=== PATIENT | male | born 1980 | race Caucasian/White ===

== ENCOUNTER 2023-02-08 13:37 | Outpatient (REF) | payer OTHER, SELFPAY ==
--- NOTE | ~2023-02-08 | US_ITS ---
EXAMINATION: US EXTRACRANIAL CAROTID DUPLEX, BILATERAL CLINICAL INFORMATION: Syncope and collapse. COMPARISON: None available. TECHNIQUE: Real-time ultrasound and Doppler techniques (integrating B-mode 2-D vascular images, Doppler spectral analysis and color-flow Doppler imaging) were utilized to interrogate the extracranial carotid arteries, the vertebral arteries and proximal subclavian arteries bilaterally. The degree of stenosis is determined by criteria similar to NASCET. FINDINGS: Right Side: 1. There is no atherosclerotic plaque seen in the bifurcation/proximal ICA region. 2. The common carotid artery PSV proximally is 127 cm/s and distally 98 cm/s. 3. The proximal internal carotid artery velocities are 76 cm/s systolic and 29 cm/s diastolic. 4. The proximal external carotid artery PSV is 136 cm/s. 5. The vertebral artery shows antegrade flow. 6. The subclavian artery waveforms are normal. Left Side: 1. There is no atherosclerotic plaque seen in the bifurcation/proximal ICA region. 2. The common carotid artery PSV proximally is 127 cm/s and distally 83 cm/s. 3. The proximal internal carotid artery velocities are 60 cm/s systolic and 30 cm/s diastolic. 4. The proximal external carotid artery PSV is 93 cm/s. 5. The vertebral artery shows antegrade flow. 6. The subclavian artery waveforms are normal. US/US carotid duplex BI IMPRESSION: 1. RIGHT: Normal right internal carotid artery without atherosclerotic plaque or hemodynamically significant stenosis. 2. LEFT: Normal left internal carotid artery without atherosclerotic plaque or hemodynamically significant stenosis.
--- NOTE | 2023-02-08 14:13 | CA_ITS ---
Transthoracic Echocardiogram Patient (Last, First, Middle): Gerard Reynaga A Gender: Male Date of : 1980 Age: 42 Procedure Date: 02/08/2023 Procedure Type: Transthoracic Echocardiogram Location: OP Height: 182.88 cm Weight: 106.6 kg BSA: 2.28 m2 Heart Rate: bpm BP: 124 / 80 mmHg Curriculum Writer: Referring MD: Stan Ferguson MD Symptoms: SYNCOPE COLLAPSE R55 Study Quality: Good ECG Rhythm: Sinus Conclusions: - The left ventricular systolic function is normal. The visually estimated ejection fraction is between 55-60%. - No obvious valvular pathology seen on this study. Findings Left Ventricle Normal left ventricular cavity size. There is mildly increased left ventricular wall thickness. The left ventricular systolic function is normal. The visually estimated ejection fraction is between 55-60%. There is no evidence of regional wall motion abnormalities. Diastolic function is normal for age. Right Ventricle Normal right ventricular cavity size and systolic function. Atria Both atria are normal in size. Aortic Valve There is a normal trileaflet aortic valve. There is no aortic valve stenosis. There is no aortic valve regurgitation. Mitral Valve The mitral valve appears normal. There is trace mitral valve regurgitation. There is no mitral valve stenosis. Pulmonic Valve The pulmonic valve is likely normal. Tricuspid Valve Normal tricuspid valve structure. There is trace tricuspid valve regurgitation. There is no evidence of pulmonary hypertension. Great Vessels The asc aorta and aortic arch are normal in size. Venous The inferior vena cava is normal in size and collapses greater than 50% with inspiration. Pericardium/Pleural There is no evidence of pericardial effusion. Prior Study Comparison No prior study available for comparison. Recommendations, Care & Conclusions No obvious valvular pathology seen on this study. Measurements 2D Linear Measurements IVSd: 1.11 0.6-0.9/0.6-1.0 cm LVIDd: 4.92 3.9-5.3/4.2-5.9 cm LVIDd Index: 2.16 2.4-3.2/2.2-3.1 cm/m2 LVIDs: 3.07 2.0-3.6 cm LVPWd: 1.06 0.7-1.1 cm Ao Root: 3.70 2.1-3.5 cm LA Diam: 3.40 2.7-3.8/3.0-4.0 cm LAIDs Index: 1.49 1.5-2.3 cm/m2 LV Mass: 246.80 67-162/88-224 g LV Mass Index: 108.24 43-95/49-115 g/m2 LVOT Diam: 2.60 3.0+(-)1.3 cm 2D Systolic Function EF 4C: 50.70 >55% EF 2C: 54.60 >55% EF BiP: 53.00 >55% Mitral Valve MV Pk E: 0.82 MV PK A: 0.71 MV Decel Time: 267.00 E/A: 1.20 E'Lateral: 9.79 E'Medial: 7.40 E/E' Med: 11.10 E/E' Lat: 8.40 PHT: 78.00 MVA PHT: 2.82 Decel Kay: 3.07 Aortic Valve AoV Pk Robbie: 1.32 AoV Mn Robbie: 0.90 AoV VTI: 0.30 AoV Pk Grad: 7.00 Aov Mn Grad: 4.00 MAYURI Cont.VTI: 4.16 LVOT LVOT Pk Robbie: 1.13 LVOT Mn Robbie: 0.72 LVOT VTI: 0.24 LVOT Pk Grad: 5.00 LVOT Mn Grad: 3.00 LVOT Diam: 2.60 LVOT Area: 5.31 Diastolic Function MV Pk E: 0.82 MV Pk A: 0.71 E/A: 1.20 E'Medial: 7.40 E/E' Med: 11.10 E' Laterial: 9.79 E/E' Lat: 8.40 Right Ventricle TAPSE (mm): 33.00 Tricuspid Valve TR Pk Robbie: 1.81 TR Pk Grad: 13.00 RA Press: 3.00 RVSP: 16.00 Great Vessels Aorta Ao Root-2D: 3.70 2.0-3.7 cm Ao Asc: 3.60 2.1-3.4 cm Ao Arch: 2.60 Pulmonary Valve PV Pk Robbie: 0.77 Peak PV Grad: 2.00 Updated in Other Vendor System with Status of Final Jun Villanueva MD electronically signed on 02/08/2023 4:17:20 PM with status of Final
== END 2023-02-08 13:38 | disposition home or self-care (01) ==
LOC: HO.US 13:37
PROVIDERS: Visit Provider Internal Medicine
DX: R55 Syncope and collapse (principal)
CPT/HCPCS: 93306; 93880